=== PATIENT | male | born 1960 | race Caucasian/White ===

== ENCOUNTER → 2016-03-23 | Outpatient (CLI) | payer MEDICARE, MEDICAID ==
[~2016-03-23] MED LIST: AC325T PO; ACET1TAB43 PO; ATOR40TA2 PO; AZIT250T81 PO; BACI28.32 TOP; CALA120L5 TOP; DNPZ10T PO; DOCU100T2 PO; DVL125C PO; FLUT16SP NS; HYDR1SOL MC; LORA1TAB PO; MAGN800O PO; MELA1TAB26 PO; MELO-249 PO; MULT-35 PO; MULT-954 PO; NF-FLON16G NS; SERT100T8 PO; SERT50TA2 PO; TERB250T10 PO; TOLN150S2 TP; [UNRECOGNIZED DRUG - CODE] PO; [UNRECOGNIZED DRUG - SUPPLY]
[2016-03-23 11:37] LABS: ANION GAP 14.8 MEQ/L (3-15)
== END ==
LOC: LAB 10:47
PROVIDERS: ATTEND Family Medicine
DX: R79.89 Other specified abnormal findings of blood chemistry (principal)
CPT/HCPCS: 36415; 80048